=== PATIENT | female | born 1955 | race Caucasian/White ===

== ENCOUNTER → 2018-09-05 | Outpatient (CLI) | payer SELFPAY ==
[~2018-09-05] MED LIST: AMLO10 PO; BUSP15 PO; BUSP5 PO; CEPH500 PO; CLON.5 PO; GLIP5 PO; INSUASPI SC; INSUASPI SQ; INSULANPEN SC; INSULANPEN SQ; METO25 PO; Micro-K10 MEQ PO; Naprosyn500 MG PO; Norco 5-325 Ta1 EACH PO; PRAV20 PO; Prinivil10 MG PO; VENL150ER PO; VENL37.5ER PO
[2018-09-06 15:08] LABS: HPV 16 Negative (Negative); HPV 18 Negative (Negative); HPV OTHER HR TYPES Negative (Negative)
== END ==
LOC: LAB 12:10 → LAB SHORT 12:10
PROVIDERS: Registered Nurse Community Health
DX: Z12.4 Encounter for screening for malignant neoplasm of cervix (principal); N89.8 Other specified noninflammatory disorders of vagina
CPT/HCPCS: 87070; 87205; 87624; G0123

== ENCOUNTER → 2019-01-16 | Outpatient (CLI) | payer OTHER ==
[2019-01-16 17:59] LABS: BASOPHILS ABSOLUTE AUTO 0.07 K/mm3 (0.00-0.23); BASOPHILS PERCENT AUTO 1 % (0-2); EOSINOPHILS ABSOLUTE AUTO 0.05 K/mm3 (0.00-0.68); EOSINOPHILS PERCENT AUTO 1 % (0-6); Hematocrit 44.3 % (33.0-51.0); Hemoglobin 14.7 g/dL (11.5-16.0); IMMATURE GRAN ABSOLUTE AUTO 0.02 K/mm3 (0.00-0.10); IMMATURE GRAN PERCENT AUTO 0 % (0-1); LYMPHOCYTES ABSOLUTE AUTO 2.67 K/mm3 (0.84-5.20); LYMPHOCYTES PERCENT AUTO 31 % (21-46); MONOCYTES ABSOLUTE AUTO 0.47 K/mm3 (0.16-1.47); MONOCYTES PERCENT AUTO 5 % (4-13); Mean Corpuscular HGB 28.4 pg (26.0-34.0); Mean Corpuscular HGB Conc 33.2 g/dL (31.5-36.5); Mean Corpuscular Volume 86 fL (80-100); Mean Platelet Volume 11.1 fL (9.1-12.4); NEUTROPHILS ABSOLUTE AUTO 5.38 K/mm3 (1.96-9.15); NEUTROPHILS PERCENT AUTO 62 % (41-73); Platelet Count 293 K/mm3 (150-400); RDW Coefficient Variation 12.6 % (11.7-14.2); Red Blood Cell Count 5.18 M/mm3 (3.80-5.20); White Blood Cell Count 8.66 K/mm3 (4.00-11.30)
[2019-01-16 18:40] LABS: Alanine Aminotransfer (ALT/SGP 23 U/L (12-78); Albumin, Blood 3.7 g/dL (3.4-5.0); Albumin/Globulin Ratio 0.9 (0.8-1.8); Alk Phos 119 U/L (50-136); Anion Gap 6 mmol/L (6-16); Aspartate Aminotrans (AST/SGOT 19 U/L (12-37); Bilirubin, Total 0.4 mg/dL (0.1-1.0); Blood Urea Nitrogen 15 mg/dL (8-24); Bun/Creatinine Ratio 23.8 (12.0-20.0); CHOL/HDL RATIO 3.4; CO2, Blood 30 mmol/L (21-32); Calcium, Blood 9.7 mg/dL (8.5-10.1); Chloride, Blood 102 mmol/L (98-108); Cholesterol 200 mg/dL (50-200); Creatinine, Blood 0.63 mg/dL (0.40-1.00); Glomerular Filtration Rate >60 (60-); Glucose, Blood 336 mg/dL (70-99); HDL Cholesterol 58 mg/dL (>39); Low Density Lipoprotein Chol 114 mg/dL (0-110); Potassium, Blood 4.1 mmol/L (3.5-5.5); Sodium, Blood 138 mmol/L (136-145); Total Protein, Blood 7.7 g/dL (6.4-8.2); Triglycerides 138 mg/dL (30-160); Very Low Density Lipoprot Chol 27 mg/dL (6-32)
== END ==
LOC: LAB 17:38 → LAB SHORT 17:38
PROVIDERS: Nurse Practitioner Family
DX: E11.9 Type 2 diabetes mellitus without complications (principal)
CPT/HCPCS: 80053; 80061; 82043; 85025

== ENCOUNTER 2019-08-21 07:33 | Emergency (ER) | payer OTHER ==
[~2019-08-21] VITALS: Ht 149.9 cm; Wt 70.8 kg
[2019-08-21] MEDS ORDERED: BASAGLAR K100 UNIT/2 SQ (07:56)
[2019-08-21] MEDS ORDERED: GLIP5 PO (07:56)
[2019-08-21] MEDS ORDERED: Novolin R100 UNIT/M SC (07:57)
[2019-08-21] MEDS ORDERED: LISI20 (07:57)
[2019-08-21] MEDS ORDERED: BUSP10 PO (07:57)
[2019-08-21] MEDS ORDERED: PRAV20 PO (07:58)
[2019-08-21] MEDS ORDERED: Prednisone20 MG PO (09:38)
[2019-08-21] MEDS ORDERED: ALBU90OI INH (09:38)
[2019-08-21] MEDS ORDERED: FLUC150A PO (09:38)
[2019-08-21] MEDS ORDERED: AZIT250 PO (09:38)
== END 2019-08-21 10:11 | disposition home or self-care (01) ==
LOC: ER 07:33
DX: J18.9 Pneumonia, unspecified organism (principal); E11.9 Type 2 diabetes mellitus without complications; Z88.5 Allergy status to narcotic agent; Z79.899 Other long term (current) drug therapy; Z79.4 Long term (current) use of insulin; Z87.891 Personal history of nicotine dependence
CPT/HCPCS: 71046; 94640; 99283-25

== ENCOUNTER → 2019-12-30 | Outpatient (CLI) | payer OTHER ==
[~2019-12-30] MED LIST changes: +ALBU90OI INH; +AZIT250 PO; +BASAGLAR K100 UNIT/2 SQ; +BUSP10 PO; +FLUC150A PO; +LISI20; +Novolin R100 UNIT/M SC; +Prednisone20 MG PO
== END | disposition home or self-care (01) ==
LOC: LAB SHORT 13:39 → LAB EV 13:39
DX: N39.0 Urinary tract infection, site not specified (principal)
CPT/HCPCS: 87086

== ENCOUNTER → 2021-02-28 | Outpatient (CLI) | payer OTHER | END | disposition home or self-care (01) | LOC: LAB 13:30 → LAB SHORT 13:30 | DX: N30.01 Acute cystitis with hematuria (principal) | CPT/HCPCS: 87077; 87086; 87186 ==

== ENCOUNTER 2022-01-25 12:03 | Inpatient (IN) | payer MEDICARE, OTHER ==
[~2022-01-25] VITALS: Ht 149.9 cm; Wt 68.8 kg
[~2022-01-25 12:03] MED LIST changes: -LISI20; +LISI20 PO; -VENL150ER PO; +Venlafaxine HCl75 MG PO
[2022-01-25 12:39] LABS: BASOPHILS ABSOLUTE AUTO 0.13 K/mm3 (0.00-0.23); BASOPHILS PERCENT AUTO 1 % (0-2); EOSINOPHILS ABSOLUTE AUTO 0.01 K/mm3 (0.00-0.68); EOSINOPHILS PERCENT AUTO 0 % (0-6); Hematocrit 51.8 % (33.0-51.0); Hemoglobin 16.2 g/dL (11.5-16.0); IMMATURE GRAN ABSOLUTE AUTO 0.13 K/mm3 (0.00-0.10); IMMATURE GRAN PERCENT AUTO 1 % (0-1); LYMPHOCYTES ABSOLUTE AUTO 2.04 K/mm3 (0.84-5.20); LYMPHOCYTES PERCENT AUTO 17 % (21-46); MONOCYTES ABSOLUTE AUTO 0.36 K/mm3 (0.16-1.47); MONOCYTES PERCENT AUTO 3 % (4-13); Mean Corpuscular HGB 28.5 pg (26.0-34.0); Mean Corpuscular HGB Conc 31.3 g/dL (31.5-36.5); Mean Corpuscular Volume 91 fL (80-100); Mean Platelet Volume 10.9 fL (9.1-12.4); NEUTROPHILS ABSOLUTE AUTO 9.73 K/mm3 (1.96-9.15); NEUTROPHILS PERCENT AUTO 79 % (41-73); Platelet Count 277 K/mm3 (150-400); RDW Coefficient Variation 12.9 % (11.7-14.2); RDW Standard Deviation 43.2 fL (35.1-46.3); Red Blood Cell Count 5.68 M/mm3 (3.80-5.20)
[2022-01-25 13:02] LABS: Base Excess Venous -27.9 mmol/L; Bicarbonate Venous 7.7 mmol/L (24.0-30.0); PCO2 Venous 22.1 mmHg (38-42); PO2 Venous 138 mmHg (38-42); pH Blood Venous 6.93 (7.34-7.37)
[2022-01-25 13:27] LABS: Albumin/Globulin Ratio 0.8 (0.8-1.8); Bilirubin, Total 0.3 mg/dL (0.1-1.0); Bun/Creatinine Ratio 26.5 (12.0-20.0); Calcium, Blood 9.5 mg/dL (8.5-10.1); Creatinine, Blood 0.79 mg/dL (0.40-1.00)
[2022-01-25 13:38] LABS: Beta-hydroxybutyrate 115.4 mg/dL (0.2-2.8)
[2022-01-25 15:34] LABS: Thyroid Stimulating Hormone 1.59 uIU/mL (0.360-4.800); Thyroxine (T4) 4.5 ug/dL (4.8-13.9)
[2022-01-25 15:36] LABS: Potassium, Blood 5.1 mmol/L (3.5-5.5)
--- NOTE | 2022-01-25 17:39 | NUR ---
ARRIVAL TO ICU/SHIFT SUMMARY PT ARRIVES TO ICU AT 1455 FOR DKA. REPORT FROM CHAU PORTILLO. PT OUT OF MEDS FOR APPROX 6 MONTHS D/T INSURANCE ISSUES. PT ARRIVES A&OX 2, IMPULSIVE BUT FOLLOWS DIRECTIONS. LABORED, TACHYPENIC RESP, 30-40'S. LUNGS CLEAR. ST ON MONITOR, RATE 120'S. HTN NOTED, ALSO HAS BEEN OUT OF BP MEDS. INSULIN GTT INFUSING, q1 HR CBG. LR AT 150 ML/HR. PIV X 2. EXT COOL BUT CAP REFILL<3 SEC. WILL CONTINUE TO MONITOR UNTIL REPORT TO ONCOMING NURSE.
[2022-01-25 18:47] LABS: Potassium, Blood 4.3 mmol/L (3.5-5.5)
--- NOTE | 2022-01-25 19:50 | NUR ---
ASSESSMENT/ASSUMED CARE PT RESTING QUIETLY. DENIES PAIN. C/O BEING COLD. TEMP 98.6. WARM BLANKETS GIVEN. PT TURNING AND MOVING SELF IN BED. A&O BUT REPEATS SELF OVER AND OVER. AKBAR STATED YEAR 1899'S BUT THAN SAID,"NO THAT IS NOT RIGHT IT IS 2021" THAN KEEP REPEATING 2021 OVER AND OVER. LUNGS CLEAR ON ROOMAIR. RESP RATE DOWN INTO THE 20'S. NONPRODUCTIVE COUGH. DENIES SOB. HEART RATE 100-110'S. BP STABLE. DENIES CHEST PAIN OR PRESSURE. BT+ ABD SOFT AND NONTENDER. DENIES N/V. POWER GLIDE TO RIGHT UPPER ARM WITH LR AT 150 ML/HR AND INSULIN AT 13 UNITS/HR. BLOOD GLUCOSE 262, DECREASED INSULIN TO 10 UNITS/HR. POWER GLIDE SITE CLEAR AND DRSG INTACT. IV TO RIGHT HAND AND LEFT AC SALINED LOCKED, BOTH SITES CLEAR AND ABLE TO FLUSH WITHOUT DIFFICULTY.
--- NOTE | 2022-01-25 20:44 | NUR ---
IV FLUID BLOOD GLUCOSE 236. CHANGED IV FLUID TO D5 1/2 AT 125 ML/HR. INSULIN INCREASED TO 12 UNITS/HR. PT SITTING UP IN BED EATING JELLO.
[2022-01-25 22:21] LABS: Potassium, Blood 4.1 mmol/L (3.5-5.5)
[2022-01-26 02:20] LABS: Hematocrit 38.4 % (33.0-51.0); Hemoglobin 13.3 g/dL (11.5-16.0); Mean Corpuscular HGB 28.9 pg (26.0-34.0); Mean Corpuscular HGB Conc 34.6 g/dL (31.5-36.5); Mean Platelet Volume 10.5 fL (9.1-12.4); Platelet Count 199 K/mm3 (150-400); RDW Coefficient Variation 12.6 % (11.7-14.2); Red Blood Cell Count 4.61 M/mm3 (3.80-5.20)
[2022-01-26 02:32] LABS: Potassium, Blood 3.3 mmol/L (3.5-5.5)
[2022-01-26 02:35] LABS: Bun/Creatinine Ratio 33.5 (12.0-20.0); Calcium, Blood 8.8 mg/dL (8.5-10.1); Creatinine, Blood 0.66 mg/dL (0.40-1.00); Potassium, Blood 3.3 mmol/L (3.5-5.5)
[2022-01-26 02:39] LABS: Mean Corpuscular Volume 83 fL (80-100)
--- NOTE | 2022-01-26 06:01 | NUR ---
SHIFT SUMMARY PT RESTING QUIETLY AT THIS TIME. MOVING AND TURNING SELF IN BED. DENIES PAIN OR DISCOMFORT. A&O, SPEECH CLEAR, SLOW AND PT REPEATS SELF OVER AND OVER. FOLLOWING INSTRUCTIONS. PT INCONT OF STOOL TWICE DURING THE NIGHT. ATTENDS ON AT THIS TIME, CD&I. UP TO BSC WITH ONE ASSIST. VOIDING YELLOW URINE. PT ON INSULIN GTT, CURRENTLY AT 2 UNITS/HR WITH D5 1/2 NS AT 125 ML/HR VIA POWER GLIDE TO RIGHT UPPER ARM. ANION GAP IS DOWN TO 9 AND CO2 IS UP TO 20. POTASSIUM WAS 3.3, PT RECEIVED 20MEQ KCL THIS MORNING. PT TAKING CLEAR LIQUID WITHOUT DIFFICULTY. RESTARTED ON BP MEDS DURING THE NIGHT FOR HTN. REPORT TO ON COMING NURSE
[2022-01-26 07:09] LABS: Magnesium, Blood 1.5 mg/dL (1.6-2.4)
[2022-01-26 07:12] LABS: Phosphorus, Blood 0.4 mg/dL (2.5-4.9)
--- NOTE | 2022-01-26 08:51 | NUR ---
ASSUMED CARE REPORT FROM JINNY PORTILLO AT 0700. PT RESTING IN BED. WAKES c VERBAL STIMULI. A&OX 3. FOLLOWS COMMANDS. STATES SHE IS FEELING MUCH BETTER. HR, BP AND RESP WNL. LUNGS CLEAR, NSR ON MONITOR, RATE 60-70'S. INSULIN GTT INFUSING, CBG 100'S. GAP CLOSED, CO2 NORMAL. KPHOS STARTED. WILL REPEAT LABS p INFUSION. TRANSITIONING TO SQ INSULIN. PT TOLERATING CLEAR LIQUIDS WELL. WILL ADVANCE TOLERATED. WILL CONTINUE TO MONITOR.
--- NOTE | 2022-01-26 17:49 | NUR ---
SHIFT SUMMARY PT REMAINS ON INSULIN GTT D/T KPHOS IN D5. LONG ACTING AND HSS STARTED TODAY. TOLERATING MEALS WELL. WILL D/C INSULIN GTT WHEN KPHOS COMPLETE. PT A&OX 3. FORGETFUL AND NEEDS OCCASIONAL REDIRECTION. ASKS REPEATIVE QUESTIONS. FOLLOWS COMMANDS. INCONTINENT OF URINE THIS SHIFT. ATTENDS IN PLACE. NSR, RATE 80'S. BP STABLE. LUNGS CLEAR. WILL CONTINUE TO MONITOR UNTIL REPORT TO ONCOMING NURSE.
[2022-01-26 20:55] LABS: Cholesterol 195 mg/dL (50-200); HDL Cholesterol 39 mg/dL (>39); LDL/HDL RATIO 2.5; Low Density Lipoprotein Chol 96 mg/dL (0-110); Phosphorus, Blood 3.1 mg/dL (2.5-4.9); Triglycerides 299 mg/dL (30-160); Very Low Density Lipoprot Chol 59 mg/dL (6-32)
[2022-01-27 03:26] LABS: BASOPHILS ABSOLUTE AUTO 0.03 K/mm3 (0.00-0.23); BASOPHILS PERCENT AUTO 0 % (0-2); EOSINOPHILS ABSOLUTE AUTO 0.07 K/mm3 (0.00-0.68); EOSINOPHILS PERCENT AUTO 1 % (0-6); Hematocrit 37.3 % (33.0-51.0); Hemoglobin 12.8 g/dL (11.5-16.0); IMMATURE GRAN ABSOLUTE AUTO 0.02 K/mm3 (0.00-0.10); IMMATURE GRAN PERCENT AUTO 0 % (0-1); LYMPHOCYTES ABSOLUTE AUTO 3.23 K/mm3 (0.84-5.20); LYMPHOCYTES PERCENT AUTO 37 % (21-46); MONOCYTES ABSOLUTE AUTO 0.52 K/mm3 (0.16-1.47); MONOCYTES PERCENT AUTO 6 % (4-13); Mean Corpuscular HGB 28.4 pg (26.0-34.0); Mean Corpuscular HGB Conc 34.3 g/dL (31.5-36.5); Mean Corpuscular Volume 83 fL (80-100); Mean Platelet Volume 11.1 fL (9.1-12.4); NEUTROPHILS ABSOLUTE AUTO 4.93 K/mm3 (1.96-9.15); NEUTROPHILS PERCENT AUTO 56 % (41-73); Platelet Count 154 K/mm3 (150-400); RDW Coefficient Variation 13.1 % (11.7-14.2); RDW Standard Deviation 38.8 fL (35.1-46.3); Red Blood Cell Count 4.51 M/mm3 (3.80-5.20)
[2022-01-27 03:42] LABS: Bun/Creatinine Ratio 31.2 (12.0-20.0); Calcium, Blood 9.2 mg/dL (8.5-10.1); Creatinine, Blood 0.61 mg/dL (0.40-1.00); Magnesium, Blood 1.7 mg/dL (1.6-2.4); Phosphorus, Blood 2.8 mg/dL (2.5-4.9); Potassium, Blood 3.8 mmol/L (3.5-5.5)
--- NOTE | 2022-01-27 04:58 | NUR ---
SHIFT SUMMARY PT ALERT AND ORIENTED X3. FORGETFUL, WILL REPEAT THE SAME QUESTIONS FREQUENTLY. HR SR 60'S. BP STABLE. AFEBRILE. ON RA SATS OVER 97%. BLOOD SUGARS ELEVATED THIS EVENING. SWITCHED SHORT ACTING INSULIN COVERAGE TO HIGH SLIDING SCALE AND 5 ADDITIONAL UNITS GIVEN THIS AM. PT INCONTINENT, ATTENDS IN PLACE. IN BED SLEEPING WITH CALL ALARM AT SIDE. WILL CONTINUE TO MONITOR UNTIL REPORT GIVEN TO DAYSHIFT RN
[2022-01-27] MEDS ORDERED: ATOR40TA PO (08:15)
--- NOTE | 2022-01-27 09:23 | NUR ---
CARE OF PT ASSUMED AT 0700. PT AWAKE, OX3, BUT FORGETFUL AT TIMES. PT W/O COMPLAINTS. DR MCNALLY IN TO SEE PT AT 0730, PT CHANGED TO MED NO TELE. PT TOLERATING PO. SENIOR SOFTWARE QUALITY ENGINEER AND ELECTRIC LOCOMOTIVE CRANE OPERATOR ASSISTED PT OOB TO CHAIR THIS AM FOR BREAKFAST.
--- NOTE | 2022-01-27 11:27 | NUR ---
BS 378. DR CARRILLO NOTIFED. ADDITIONAL 5UNITS ORDERED. PT REMAINS UP IN CHAIR. C/O YEAST TO [place] AREA, DIFLUCAN ORDERED AND GIVEN.
--- NOTE | 2022-01-27 13:32 | NUR ---
PATIENT TRANSFERRED FROM ICU TODAY 01/27/22 AT 1300. DKA PATIENT IS A&OX3. VS ARE WNL AND IS ON RA. SHE IS TOLERATING SMALL AMOUNTS OF PO INTAKE AND IS ABLE TO AMBULATE WITH SBA. BED ALARM ON SINCE SHE CAN BE FORGETFUL AT TIMES. FATHER IS AT BEDSIDE. CALL LIGHT WITHIN REACH. PATIENT REPORTS "I'M GOING TO FINALLY TAKE A NAP NOW".
--- NOTE | 2022-01-27 16:16 | NUR ---
SHIFT SUMMARY: DKA PATIENT IS A&OX3 AND IS FORGETFUL AT TIMES WITH ASKING THE SAME QUESTIONS. VS ARE WNL AND IS ON RA. TOLERATING PO INTAKE AND IS VOIDING. PATIENT IS A SBA TO THE BATHROOM. CALLS APPROPRIATELY. BED ALARM ON A PRECAUTION. CALL LIGHT WITHIN REACH. PATIENT IS LAYING IN BED WATCHING TV AT THIS TIME. FATHERS NUMBER IS ON THE WHITE BOARD IF NEEDING TO GET AHOLD OF FAMILY. THE PLAN IS TO CONTINUE BLOOD SUGAR MANAGEMENT AND CONTINUE DIABETIC EDUCATION.
--- NOTE | 2022-01-27 16:22 | NUR ---
CALLED DR. WIGGINS ABOUT PATIENTS BLOOD SUGAR THAT WAS 358. DR. WIGGINS STATED TO JUST GIVE THE 10 UNITS OF HUMALOG AND NOTHING ELSE AT THIS TIME. WILL CONTINUE TO MONITOR BLOOD SUGARS. PATIENT IS LAYING IN BED WITH CALL LIGHT IN REACH.
--- NOTE | 2022-01-28 04:44 | NUR ---
PT IS A&OX4, INDEPENDENT IN BED AND IS ABLE TO MAKE NEEDS KNOWN. PT HAS BEEN LESS FORGEFUL THIS SHIFT, ANSWERS ORIENTATION QUESTIONS APPROPRIATELY. BLOOD SUGARS REMAIN >300. VSS. EDUCATED PT ON DIFFERENT TYPES OF INSULIN AND THEIR USES, PT VERBALIZES UNDERSTANDING. RESTS BETWEEN CARES AND IS INDEPENDENT TO BR. MIDLINE IV FLUSHES WELL BUT DOESN'T DRAW. PT SLEEPS 6+ HOURS THIS SHIFT. WILL CONTINUE TO MONITOR AND GIVE REPORT TO ONCOMING NURSE.
[2022-01-28 05:50] LABS: Bun/Creatinine Ratio 35.9 (12.0-20.0); Calcium, Blood 9.4 mg/dL (8.5-10.1); Creatinine, Blood 0.56 mg/dL (0.40-1.00); Potassium, Blood 4.2 mmol/L (3.5-5.5)
--- NOTE | 2022-01-28 18:29 | NUR ---
CHEM BG ELEATED ON AC CHECKS, NEW ORDERS RECEIVED REGARDING BLOOD SUGARS. PT UP IN ROOM TO VOID, DENIES PAIN
--- NOTE | 2022-01-29 04:21 | NUR ---
PT IS A&OX4, INDEPENDENT IN ROOM AND IS ABLE TO MAKE NEEDS KNOWN. NO ACUTE CHANGES THIS SHIFT. PLAN TO D/C THIS AM. BLOOD SUGARS REMAIN >300. TOLERATING DIET. VSS. DENIES PAIN. WILL CONTINUE TO MONITOR THIS PT AND GIVE REPORT TO ONCOMING NURSE
--- NOTE | 2022-01-29 12:40 | NUR ---
Pt. is sitting up in bed patsy welcomes my visit. Pt. is unsettled about not being discharged because of her high blood sugar numbers. Through a calming presence and theraputic listening was able to facilitate a family life review. Pt. displayed evidence of grief from a loss of a son who was a Marine in [place]. Pt. verbalized questions of a spiritual nature. Explored issues of ron and belief. Pt. displayed evidence of understanding and agreement. Continued to develop rapport at Pt. displayed evidence of being lonely. Prayed with pt. Pt. verbalized gratitude for the spiritual care visit. note: Upon my departure a nurse came to inform Pt. she could be discharged today.
[2022-01-29] MEDS ORDERED: BASAGLAR K100 UNIT/3 SC (13:00)
--- NOTE | 2022-01-29 15:14 | NUR ---
DISCHARGE SUMMARY PATIENT ALERT AND ORIENTED THROUGHOUT SHIFT. TOLERATING ADA DIET AND LIQUIDS. BLOOD SUGAR COVERED WITH SLIDING SCALE AND LONG ACTING INSULIN. INDEPENDENT IN ROOM AND VOIDING WELL. DISCHARGE ORDER OBTAINED. DISCHARGE EDUCATION GIVEN ON NEW MEDS AND FOLLOW UP APPTS. PATIENT LEFT UNIT WITH FATHER FOR HOME AT 1415.
== END 2022-01-29 14:08 | disposition home or self-care (01) | DRG 639 ==
LOC: ER 12:03 → SURS 14:05 → ICUE 14:05 → ICUW 14:05 → ICUE 14:49 → SURS 01-27 13:34
PROVIDERS: Emergency Medicine; Family Medicine; ADMIT Internal Medicine
DX: E11.10 Type 2 diabetes mellitus with ketoacidosis without coma (principal); E87.6 Hypokalemia; E83.39 Other disorders of phosphorus metabolism; B37.9 Candidiasis, unspecified; E78.5 Hyperlipidemia, unspecified; F32.A Depression, unspecified; E03.9 Hypothyroidism, unspecified; G47.00 Insomnia, unspecified; I10 Essential (primary) hypertension; F41.9 Anxiety disorder, unspecified; Z91.14 Patient's other noncompliance with medication regimen; Z79.4 Long term (current) use of insulin; Z90.49 Acquired absence of other specified parts of digestive tract; Z90.89 Acquired absence of other organs; Z98.890 Other specified postprocedural states; Z79.52 Long term (current) use of systemic steroids; Z88.5 Allergy status to narcotic agent; Z79.899 Other long term (current) drug therapy
CPT/HCPCS: 36415; 80048; 80051; 80053; 80061; 82010; 82043; 82803; 82947; 83735; 84100; 84436; 84443; 85025; 85027; 99285; A9270; C1751; J1650; J1815; J3480; J7042; J7060; J7120

== ENCOUNTER 2023-04-19 11:39 | Inpatient (IN) | payer MEDICARE, OTHER ==
[2023-04-19] VITALS (16 sets, daily range): BP systolic 101–167; BP diastolic 52–104
[~2023-04-19] VITALS: Ht 149.9 cm; Wt 70.1 kg
[~2023-04-19 11:39] MED LIST changes: +ATOR40TA PO; +BASAGLAR K100 UNIT/3 SC
[2023-04-19 13:00] LABS: Base Excess Venous -26.2 mmol/L; Bicarbonate Venous 8.2 mmol/L (24.0-30.0); PCO2 Venous 21.4 mmHg (38-42); pH Blood Venous 6.99 (7.34-7.37)
[2023-04-19 13:01] LABS: BASOPHILS ABSOLUTE AUTO 0.06 K/mm3 (0.00-0.23); BASOPHILS PERCENT AUTO 1 % (0-2); EOSINOPHILS PERCENT AUTO 0 % (0-6); Hematocrit 48.6 % (33.0-51.0); IMMATURE GRAN PERCENT AUTO 1 % (0-1); LYMPHOCYTES ABSOLUTE AUTO 0.89 K/mm3 (0.84-5.20); LYMPHOCYTES PERCENT AUTO 8 % (21-46); MONOCYTES PERCENT AUTO 3 % (4-13); Mean Corpuscular HGB 28.9 pg (26.0-34.0); Mean Corpuscular HGB Conc 32.9 g/dL (31.5-36.5); Mean Corpuscular Volume 88 fL (80-100); Mean Platelet Volume 11.2 fL (9.1-12.4); NEUTROPHILS ABSOLUTE AUTO 10.17 K/mm3 (1.96-9.15); NEUTROPHILS PERCENT AUTO 88 % (41-73); Platelet Count 324 K/mm3 (150-400); RDW Coefficient Variation 12.6 % (11.7-14.2); RDW Standard Deviation 40.9 fL (35.1-46.3); Red Blood Cell Count 5.54 M/mm3 (3.80-5.20); White Blood Cell Count 11.52 K/mm3 (4.00-11.30)
[2023-04-19 13:35] LABS: Calcium, Ionized (POC) 1.43 mmol/L (1.10-1.46); Chloride (POC) 105 mmol/L (98-108); Glucose (ISTAT POC) 590 mg/dL (70-99); Hemoglobin (POC) 16.3 g/dL (12.0-16.0); Potassium (POC) 5.3 mmol/L (3.5-5.5); Sodium (POC) 134 mmol/L (135-148); Total CO2 (POC) 8 mmol/L (21-32)
[2023-04-19 15:02] LABS: Potassium, Blood 4.7 mmol/L (3.5-5.5)
[2023-04-19 15:15] LABS: Alanine Aminotransfer (ALT/SGP 24 U/L (12-78); Albumin, Blood 3.6 g/dL (3.4-5.0); Albumin/Globulin Ratio 0.9 (0.8-1.8); Alk Phos 115 U/L (50-136); Anion Gap 32 mmol/L (6-16); Aspartate Aminotrans (AST/SGOT 16 U/L (12-37); Beta-hydroxybutyrate >138.0 mg/dL (0.2-2.8); Bilirubin, Total 0.5 mg/dL (0.1-1.0); Blood Urea Nitrogen 33 mg/dL (8-24); Bun/Creatinine Ratio 29.5 (12.0-20.0); CO2, Blood 5 mmol/L (21-32); Calcium, Blood 11.3 mg/dL (8.5-10.1); Chloride, Blood 98 mmol/L (98-108); Creatinine, Blood 1.12 mg/dL (0.40-1.00); Globulin, Blood 4.2 g/dL (2.2-4.0); Glomerular Filtration Rate 54 (60-); Glucose, Blood 631 mg/dL (70-99); Potassium, Blood 4.7 mmol/L (3.5-5.5); Sodium, Blood 135 mmol/L (136-145); Total Protein, Blood 7.8 g/dL (6.4-8.2)
[2023-04-19 16:19] LABS: Glucose, Blood 570 mg/dL (70-99)
--- NOTE | 2023-04-19 16:43 | NUR ---
ADMIT PT ARRIVED TO ICU 1 VIA STRETCHER. PT ALERT, TRANSFERRED TO ICU BED WITH ASSISTANCE. INSULIN GTT INFUSING. BLODO SUGAR CHECKED, BUT READ HIGH SO STAT GLUCOSE LAB SENT. RR 30S AND SHALLOW. WHILE LAYING IN BED PT'S HR JUMPED TO THE 180S AND SUSTAINED. SBP AT 103 AND PT DENIES ANY SYMPTOMS. VALSAVLA MANEUVER DONE BY PT WITH COACHING, BUT NO CHANGE IN HR. EKG SHOWS AFIB WITH RVR. AFTER5 MINTUES PT'S HR DROPPED BACK TO THE 120S. DR. LARSON NOTIFIED AND ORDERS RECEIVED FOR 1L LR BOLUS. PT ALSO STATES SHE DIDN'T TAKE HER AM MEDS, WHICH INCLUDES METOPROLOL. DR. LARSON ORDERED HER HOME DOSE OF METOPROLOL WITH FIRST DOSE TO BE GIVEN NOW. PT RESTING QUIETLY CURRENTLY. CONTINUING TO MONITOR.
[2023-04-19 17:13] LABS: Glucose, Blood 482 mg/dL (70-99)
[2023-04-19 18:48] LABS: Potassium, Blood 3.9 mmol/L (3.5-5.5)
--- NOTE | 2023-04-19 19:00 | NUR ---
ASSUMPTION OF CARE CARE OF NATACHA WAS ASSUMED AT 1900. PT WAS RESTING IN BED UPON ENTERING ROOM, FATHER AT BEDSIDE. PT DID NOT COMPLAIN OF ANY PAIN, AND ONLY REQUESTED SOME WATER TO DRINK. PT HAD INSULIN INFUSING AT 6.5 UNITS/HR AND KCL INFUSING AT 200 ML/HR. BP AND HEART RATE STABLE.
[2023-04-19 22:43] LABS: Potassium, Blood 4.5 mmol/L (3.5-5.5)
--- NOTE | 2023-04-19 23:44 | NUR ---
NS KCL 20 mEq was put on standby as per instructions on emar to stop all other fluids when D5 1/2 NS was started. Also refer to Potassium lab result at 2211.
[2023-04-20] VITALS (14 sets, daily range): BP systolic 107–173; BP diastolic 43–62
[2023-04-20 03:07] LABS: BASOPHILS ABSOLUTE AUTO 0.02 K/mm3 (0.00-0.23); BASOPHILS PERCENT AUTO 0 % (0-2); EOSINOPHILS ABSOLUTE AUTO 0.01 K/mm3 (0.00-0.68); EOSINOPHILS PERCENT AUTO 0 % (0-6); Hematocrit 37.9 % (33.0-51.0); Hemoglobin 12.9 g/dL (11.5-16.0); IMMATURE GRAN ABSOLUTE AUTO 0.06 K/mm3 (0.00-0.10); IMMATURE GRAN PERCENT AUTO 0 % (0-1); LYMPHOCYTES ABSOLUTE AUTO 3.36 K/mm3 (0.84-5.20); LYMPHOCYTES PERCENT AUTO 21 % (21-46); MONOCYTES ABSOLUTE AUTO 1.55 K/mm3 (0.16-1.47); MONOCYTES PERCENT AUTO 10 % (4-13); Mean Corpuscular HGB 29.1 pg (26.0-34.0); Mean Corpuscular Volume 86 fL (80-100); Mean Platelet Volume 10.7 fL (9.1-12.4); NEUTROPHILS PERCENT AUTO 68 % (41-73); Platelet Count 215 K/mm3 (150-400); RDW Coefficient Variation 12.5 % (11.7-14.2); RDW Standard Deviation 38.9 fL (35.1-46.3); Red Blood Cell Count 4.43 M/mm3 (3.80-5.20)
[2023-04-20 03:36] LABS: Bun/Creatinine Ratio 41.3 (12.0-20.0); Creatinine, Blood 0.7 mg/dL (0.40-1.00); Potassium, Blood 3.9 mmol/L (3.5-5.5)
[2023-04-20 03:37] LABS: Calcium, Blood 9.3 mg/dL (8.5-10.1)
--- NOTE | 2023-04-20 06:50 | NUR ---
SHIFT SUMMARY NATACHA CONTINUES TO BE A&O X4 ALTHOUGH DOES APPEAR TO BE FORGETFUL. WHEN ASKING PT QUESTIONS REGARDING HER LIVING SITUATION, SHE TOOK A SMALL AMOUNT OF TIME TO THINK ABOUT IT, AND WOULDN'T ALWAYS FULLY ANSWER THE QUESTION. CARDIAC MONITORING REFLECTED PT'S RHYTHM AFIB FOR THIS SHIFT. SBP 130S TO 140S THIS SHIFT. PT REMAINED ON ROOM AIR THROUGHOUT THE SHIFT, O2 SATS >95%. TITRATION OF INSULIN PERFORMED THROUGHOUT SHIFT PER EMAR. INSULIN CURRENTLY INFUSING @ 2 UNITS/HR. D5 1/2 NS IS ALSO INFUSING. PT IS INCONT OF BOWEL AND BLADDER. PT HAD A LARGE BM THIS SHIFT, AND MINIMAL URINE OUTPUT.
--- NOTE | 2023-04-20 07:36 | NUR ---
AM NOTE.... ASSUMED CARE OF PT AT 0700. PT IS A&Ox4 DURING THIS ASSESSMENT. SHE IS ON RA WITH O2 SAT>95% L/S CLEAR T/O. SHE IS IN SR IN THE 60'S BP IS STABLE WITH MAPS>65. NO EDEMA IS NOTED ON THIS ASSESSMENT. BT PRESENT AND NORMOACTIVE, PT DENIES ANY N/V AND IS REQUESTING BREAKFAST. THE INSULIN DRIP IS RUNNING AT 2U/HR, CBGs Q1HR LAST CBG WAS 193. D5 w/1/2 NS IS RUNNING PER ORDERS. GAP IS CLOSED AND CO2 IS 20. CALL LIGHT IN REACH WILL CONTINUE TO MONITOR.
[2023-04-20 09:06] LABS: Bun/Creatinine Ratio 41.5 (12.0-20.0); Calcium, Blood 9.5 mg/dL (8.5-10.1); Creatinine, Blood 0.58 mg/dL (0.40-1.00); Potassium, Blood 3.2 mmol/L (3.5-5.5)
[2023-04-20] MEDS ORDERED: HYDCHL25 PO (09:42)
[2023-04-20] MEDS ORDERED: TRULICITY0.75 MG/01 SC (09:44)
--- NOTE | 2023-04-20 15:39 | NUR ---
patient transfering to medical floor room 306, report from amita lombardo rn
[2023-04-21 04:27] VITALS: BP 171/64
[2023-04-21 05:30] LABS: Bun/Creatinine Ratio 32.9 (12.0-20.0); Creatinine, Blood 0.73 mg/dL (0.40-1.00); Potassium, Blood 3.9 mmol/L (3.5-5.5)
--- NOTE | 2023-04-21 06:02 | NUR ---
SHIFT SUMMARY 67 YR F ADMITTED ON 04/19/23 FOR DKA. PT TRANDFERED TO THIS UNIT YESTERDAY. FULL CODE. NO ACUTE CHANGES THIS SHIFT. PT CALLS APPROPRIATELY FOR ASSISTANCE AND AMBULATES TO BATHROOM. EVENING BS WAS 405 AND INSULIN GIVEN. PT HAD NO C/O PAIN, DISCOMFOR, NAUSEA, OR VOMITING THIS SHIFT. SHE IS PLAESANT AND COOPERATIVE WITH CARE.
[2023-04-21 07:23] VITALS: BP 155/61
[2023-04-21] MEDS ORDERED: INSULIN GL100 UNIT/2 SC (11:27)
--- NOTE | 2023-04-21 15:02 | NUR ---
REPEAT GLUCOSE 318. DR. LARSON INFORMED. OK TO DISCHARGE HOME
--- NOTE | 2023-04-21 15:41 | NUR ---
SHIFT/DISCHARGE SUMMARY Pt remains A&O x3 this shift. Denies pain. VSS. Ambulating to bathroom with SBA. Resp even nonlabored on RA. Elevated blood glucose testing and intervention reviewed with Dr. Ureña. All discharge instructions reviewed with pt and her dad with return verbal understanding. Expressed importance of diabetic diet. Pt to lobby via transport chair/FOOD WRITER with all belongings.
== END 2023-04-21 16:04 | disposition home or self-care (01) | DRG 639 ==
LOC: ER 11:39 → MEDS 14:07 → ICUE 14:07 → MEDS 04-20 15:48 → ENPENDDIS 04-21 10:06 → MEDS 04-21 16:04
PROVIDERS: Student in an Organized Health Care Education/Training Program; ADMIT Internal Medicine
DX: E11.10 Type 2 diabetes mellitus with ketoacidosis without coma (principal); N32.81 Overactive bladder; R32 Unspecified urinary incontinence; E78.5 Hyperlipidemia, unspecified; E03.9 Hypothyroidism, unspecified; F41.8 Other specified anxiety disorders; G47.00 Insomnia, unspecified; I10 Essential (primary) hypertension; T38.3X5A Adverse effect of insulin and oral hypoglycemic [antidiabetic] drugs, initial encounter; Z88.5 Allergy status to narcotic agent; Z90.49 Acquired absence of other specified parts of digestive tract; Z90.89 Acquired absence of other organs; Z79.899 Other long term (current) drug therapy; Z79.811 Long term (current) use of aromatase inhibitors; Z98.890 Other specified postprocedural states; Z79.4 Long term (current) use of insulin
CPT/HCPCS: 36415; 80047; 80048; 80051; 80053; 82010; 82803; 82947; 83690; 85014; 85025; 93005; 93010; 96361; 96374; 99285-25; A9270; J1650; J1815; J2405; J3480; J7042; J7120

== ENCOUNTER 2023-08-26 15:49 | Inpatient (IN) | payer MEDICARE, OTHER ==
[~2023-08-26] VITALS: Ht 149.9 cm; Wt 67.6 kg
[~2023-08-26 15:49] MED LIST changes: +HYDCHL25 PO; +INSULIN GL100 UNIT/2 SC; +TRULICITY0.75 MG/01 SC
[2023-08-26 16:22] LABS: BASOPHILS ABSOLUTE AUTO 0.05 K/mm3 (0.00-0.23); BASOPHILS PERCENT AUTO 1 % (0-2); EOSINOPHILS ABSOLUTE AUTO 0.02 K/mm3 (0.00-0.68); EOSINOPHILS PERCENT AUTO 0 % (0-6); Hematocrit 47.5 % (33.0-51.0); Hemoglobin 15.5 g/dL (11.5-16.0); IMMATURE GRAN ABSOLUTE AUTO 0.03 K/mm3 (0.00-0.10); IMMATURE GRAN PERCENT AUTO 0 % (0-1); LYMPHOCYTES ABSOLUTE AUTO 3.44 K/mm3 (0.84-5.20); LYMPHOCYTES PERCENT AUTO 35 % (21-46); MONOCYTES PERCENT AUTO 5 % (4-13); Mean Corpuscular HGB 28.4 pg (26.0-34.0); Mean Corpuscular HGB Conc 32.6 g/dL (31.5-36.5); Mean Corpuscular Volume 87 fL (80-100); Mean Platelet Volume 11.1 fL (9.1-12.4); NEUTROPHILS ABSOLUTE AUTO 5.83 K/mm3 (1.96-9.15); NEUTROPHILS PERCENT AUTO 59 % (41-73); Platelet Count 297 K/mm3 (150-400); RDW Coefficient Variation 12.6 % (11.7-14.2); RDW Standard Deviation 39.8 fL (35.1-46.3); Red Blood Cell Count 5.46 M/mm3 (3.80-5.20); White Blood Cell Count 9.87 K/mm3 (4.00-11.30)
[2023-08-26 16:49] LABS: Albumin, Blood 3.4 g/dL (3.4-5.0); Albumin/Globulin Ratio 0.8 (0.8-1.8); Bilirubin, Total 0.5 mg/dL (0.1-1.0); Bun/Creatinine Ratio 57.5 (12.0-20.0); Calcium, Blood 10.7 mg/dL (8.5-10.1); Creatinine, Blood 1.06 mg/dL (0.40-1.00); Magnesium, Blood 2.6 mg/dL (1.6-2.4); Potassium, Blood 4.1 mmol/L (3.5-5.5); Total Protein, Blood 7.4 g/dL (6.4-8.2)
[2023-08-26 17:04] LABS: Influenza A, PCR NEGATIVE (NEGATIVE); Influenza B, PCR NEGATIVE (NEGATIVE); Resp Syncytial Virus, PCR NEGATIVE (NEGATIVE); SARS-Cov-2 (COVID-19) PCR, MMC NEGATIVE (NEGATIVE)
[2023-08-26 17:47] LABS: Base Excess Venous -18.3 mmol/L; Bicarbonate Venous 12.5 mmol/L (24.0-30.0); PCO2 Venous 27.4 mmHg (38-42)
[2023-08-26 17:48] LABS: pH Blood Venous 7.18 (7.34-7.37)
[2023-08-26 19:17] LABS: Source, Urine Clean Catch
[2023-08-26 19:21] LABS: Bilirubin, Urine Neg (Neg); Blood, Urine 2+ (Neg); Glucose Qualitative, Urine 4+ (Neg); Ketones, Urine 4+ (Neg); Leukocyte Esterase, Urine 1+ (Neg); Nitrite, Urine Neg (Neg); Protein, Urine 2+ (Neg); Urobilinogen, Urine NORM (Normal)
[2023-08-26 19:28] LABS: Color, Urine Pale Yellow (P-Yellow)
[2023-08-26 19:29] LABS: Appearance, Urine Hazy (Clear); Bacteria Few /hpf; Squamous Epithelial Cells Few /hpf (Few); Yeast/Fungi Urine Few /hpf
[2023-08-26 19:36] LABS: Magnesium, Blood 2.3 mg/dL (1.6-2.4)
[2023-08-26 19:58] LABS: Bun/Creatinine Ratio 67.1 (12.0-20.0); Calcium, Blood 9.4 mg/dL (8.5-10.1); Creatinine, Blood 0.79 mg/dL (0.40-1.00)
[2023-08-26 20:00] VITALS: BP 172/73
--- NOTE | 2023-08-26 20:00 | NUR ---
ARRIVAL TO ICU PT ARRIVED TO ICU VIA ED BED AT 194 AND WAS ABLE TO AMBULATE OVER TO THE ICU BED WITH MINIMAL ASSISTANCE. SHE IS HERE FOR DKA. SHE IS A/O X4 AND ABLE TO MAKE HER NEEDS KNOWN; VERY PLEASENT AND COOPERATIVE WITH CARE. SPO2 >95% ON RA. AFEBRILE. HR 100-120. SBP 160-180'S. INSULIN STARTED AT 2UNITS/HR AND LR INFUSING AT 500ML/HR. NO C/O NAUSEA JUST FREQUENTLY ASKING FOR WATER AND ICE CHIPS; SMALL AMOUNT OF ICE CHIPS GIVEN AND SHE WAS ABLE TO TOLERATE WELL. SHE IS AMBULATING TO THE TOILET WITH MINIMAL ASSISTANCE, MOSTLY JUST LINE MANAGMENT NEEDED. SEE ADMISSION ASSESSMENT FOR FULL ASSESSMENT.
[2023-08-26 21:00] VITALS: BP 178/82
[2023-08-26 21:17] LABS: Base Excess Venous -19.2 mmol/L; Bicarbonate Venous 11.4 mmol/L (24.0-30.0); PCO2 Venous 27.6 mmHg (38-42); pH Blood Venous 7.15 (7.34-7.37)
[2023-08-26 22:00] VITALS: BP 184/76
[2023-08-26 22:18] VITALS: BP 115/99
[2023-08-26 23:04] VITALS: BP 141/60
[2023-08-26 23:30] LABS: Bun/Creatinine Ratio 58.7 (12.0-20.0); Calcium, Blood 8.8 mg/dL (8.5-10.1); Creatinine, Blood 0.77 mg/dL (0.40-1.00); Potassium, Blood 3.6 mmol/L (3.5-5.5)
[2023-08-27] VITALS (19 sets, daily range): BP systolic 106–143; BP diastolic 41–109
--- NOTE | 2023-08-27 | NUR ---
UPDATE CALL MADE TO HOSPITALIST REGARDING CRITCAL VALUES CO2 AND pH. NEW ORDERS PROVIDED FOR AN ADDITIONAL LR BOLUS. AFTER BOLUS WE WERE ABLE TO SWITCH OVER TO D5 1/2 NS AT 200ML/HR AT 2305. ALSO GAVE A DOSE OF LABETALOL FOR SBP 180-190'S. NOW SBP 130'S AND HR WENT FROM 100-110 TO 70'S. PT TOLERATING WELL.
[2023-08-27 06:04] LABS: Bun/Creatinine Ratio 48.7 (12.0-20.0); Calcium, Blood 8.7 mg/dL (8.5-10.1); Creatinine, Blood 0.66 mg/dL (0.40-1.00); Potassium, Blood 3.2 mmol/L (3.5-5.5)
--- NOTE | 2023-08-27 06:31 | NUR ---
END OF SHIFT SUMMARY NO ACUTE EVENTS OVERNIGHT. PT CONT TO BE A/O X4 AND ABLE TO MAKE HER NEEDS KNOWN. SPO2 >94% ON RA. HR 60-80'S. SBP 130'S. AMBULATING TO TOILET WITH MINIMAL ASSISTANCE. SHE STATES THAT SHE IS HUNGRY. CALL MADE TO DR VASQUEZ REGARDING THIS AM LAB; NEW ORDERS PROVIDED TO TRANSITION PT OFF OF INSULIN GTT, ANION GAP IS CLOSED AND CO2 IS WNL. ORDER ALSO TO REPLACE POTASSIUM THIS AM. WILL REPORT TO AM RN WHEN AVAILABLE.
--- NOTE | 2023-08-27 08:00 | NUR ---
INITIAL ASSESSMENT PATIENT SLEEPING SOUNDLY UPON ENTERING ROOM. PATIENT WAKES EASILY TO VERBAL STIMULI. PATIENT ALERT AND ORIENTED X 4, AFEBRILE. PATIENT DENIES PAIN. PATIENT WEAK; SBA TO TOILET. RESP WNL. PATIENT IN SR, HR IN THE 60S. SBP IN THE 130S. GI WNL. WNL. SKIN APPEARS WNL. INSULIN DRIP AT 6 UNITS/ HOUR. D5 1/2 NS AT 200 MLS/ HOUR. BED LOW, CALL LIGHT IN REACH. CARE CONTINUES.
[2023-08-27] MEDS ORDERED: METF500 PO (11:59)
[2023-08-27] MEDS ORDERED: JARDIANCE25 MG PO (12:00)
--- NOTE | 2023-08-27 12:00 | NUR ---
PATIENT AFEBRILE. HR IN THE 60S. SBP LOW 100S TO 140S. BLOOD SUGAR 301; COVERAGE ADMINISTERED. NO ACUTE CHANGES TO NOTE ON AT THIS TIME.
[2023-08-27] MEDS ORDERED: HYDCHL25 PO (12:02)
--- NOTE | 2023-08-27 12:39 | NUR ---
DR. CARUSO INFORMED THAT MED REC UPDATED. STATED SHE WOULD LOOK AT LIST AND PLACE ORDERS.
--- NOTE | 2023-08-27 16:29 | NUR ---
SHIFT SUMMARY PATIENT REMAINED ALERT AND ORIENTED X 4, AFEBRILE. PATIENT SBA TO TOILET. PATIENT HAD NO COMPLAINTS OF PAIN THIS SHIFT. PATIENT REMAINED SATTING 90% AND GREATER ON RA. PATIENT REMAINED IN SR, HR 60S TO 70S. SBP 1-TEENS TO 140S. GI AND WNL. SKIN REMAINED WNL. PATIENT REFUSED BED BATH THIS SHIFT. PATIENT STARTED ON LONG ACTING INSULIN THIS AM AND INSULIN DRIP DC'D. BLOOD SUGARS 208 AND 301 THIS SHIFT; [facility] COVERAGE ADMINISTERED. DR. CARUSO INFORMED THAT MED REC UPDATED THIS SHIFT. PATIENT HAD 40 MEQ KCL THIS SHIFT FOR POTASSIUM OF 3.2 THIS AM. PATIENT'S DAD CAME TO VISIT TWICE THIS SHIFT. PATIENT WILL BE TRANSFERRED TO SURGICAL FLOOR, ROOM 210 SHORTLY.
--- NOTE | 2023-08-27 16:35 | NUR ---
PATIENT SUCCESSFULLY TRANSFERRED TO SURGICAL FLOOR, ROOM 210. ALL BELONGINGS SENT WITH PATIENT.
--- NOTE | 2023-08-27 17:43 | NUR ---
PT ARRIVED TO ROOM 210/ICU TRANSFER, A&OX4, VSS/RA, AMB SBA TO BED, PARUL PO. WILL REPORT TO ONCOMING DALIA RN.
[2023-08-28 03:49] VITALS: BP 128/52
[2023-08-28 04:33] LABS: Calcium, Blood 8.9 mg/dL (8.5-10.1); Creatinine, Blood 0.53 mg/dL (0.40-1.00); Magnesium, Blood 1.9 mg/dL (1.6-2.4); Potassium, Blood 3.6 mmol/L (3.5-5.5)
--- NOTE | 2023-08-28 06:31 | NUR ---
SHIFT SUMMARY NOC. PT A/O X4. PT VOIDING AND TOLERATING PO INTAKE. PT DID NOT NEED ADDITIONAL INSULIN COVERAGE FOR BEDTIME BLOOD SUGAR. PT INDEPENDENT IN THE ROOM. PT RESTED WITH EYES CLOSED AND CALL LIGHT IN REACH.
[2023-08-28 07:07] VITALS: BP 118/49
[2023-08-28] MEDS ORDERED: CEPH500 PO (10:15)
--- NOTE | 2023-08-28 11:22 | NUR ---
DISCHARGE SUMMARY PT A&OX4, VSS/RA, PARUL PO, VOIDING, AMB INDEPENDENTLY, DENIES PAIN, IVs DCd x2. DC INS PROVIDED. PT REP UNDERSTANDING THOSE INSTRUCTIONS. LEFT FLOOR VIA WC WITH RN TO GO HOME WITH DAD WITH ALL PERSONAL POSSESSIONS.
[2023-08-30 07:11] LABS: HEMOGLOBIN A1C 15.5 % (4.8-5.6)
== END 2023-08-28 11:00 | disposition home or self-care (01) | DRG 638 ==
LOC: ER 15:49 → ICUE 18:10 → SURS 08-27 16:32
PROVIDERS: Hospitalist; Nurse Practitioner Acute Care; Student in an Organized Health Care Education/Training Program; ADMIT Internal Medicine
DX: E11.10 Type 2 diabetes mellitus with ketoacidosis without coma (principal); N39.0 Urinary tract infection, site not specified; I10 Essential (primary) hypertension; E78.5 Hyperlipidemia, unspecified; F41.8 Other specified anxiety disorders; G47.00 Insomnia, unspecified; E03.9 Hypothyroidism, unspecified; Z88.5 Allergy status to narcotic agent; Z91.148 Patient's other noncompliance with medication regimen for other reason; Z79.899 Other long term (current) drug therapy; Z79.4 Long term (current) use of insulin; Z90.49 Acquired absence of other specified parts of digestive tract; Z90.89 Acquired absence of other organs; Z87.891 Personal history of nicotine dependence; Z98.51 Tubal ligation status; Z11.52 Encounter for screening for COVID-19
CPT/HCPCS: 0241U; 36415; 80048; 80053; 81001; 82010; 82803; 82947; 83036; 83735; 85025; 87086; 93005; 93010; 96361; 96374; 99285-25; A9270; J0696; J1650; J1815; J2405; J3480; J7030; J7042; J7050; J7120

== ENCOUNTER → 2024-04-25 | Outpatient (CLI) | payer MEDICARE, OTHER ==
[~2024-04-25] MED LIST changes: +DOXY100 PO; +Diflucan150 MG PO; +JARDIANCE25 MG PO; +METF500 PO
[2024-04-25 14:24] LABS: BASOPHILS ABSOLUTE AUTO 0.07 K/mm3 (0.00-0.23); BASOPHILS PERCENT AUTO 1 % (0-2); EOSINOPHILS ABSOLUTE AUTO 0.09 K/mm3 (0.00-0.68); EOSINOPHILS PERCENT AUTO 1 % (0-6); Hematocrit 40.5 % (33.0-51.0); Hemoglobin 13.5 g/dL (11.5-16.0); IMMATURE GRAN ABSOLUTE AUTO 0.01 K/mm3 (0.00-0.10); IMMATURE GRAN PERCENT AUTO 0 % (0-1); LYMPHOCYTES ABSOLUTE AUTO 2.15 K/mm3 (0.84-5.20); LYMPHOCYTES PERCENT AUTO 33 % (21-46); MONOCYTES ABSOLUTE AUTO 0.37 K/mm3 (0.16-1.47); MONOCYTES PERCENT AUTO 6 % (4-13); Mean Corpuscular HGB 28.5 pg (26.0-34.0); Mean Corpuscular HGB Conc 33.3 g/dL (31.5-36.5); Mean Corpuscular Volume 85 fL (80-100); Mean Platelet Volume 10.5 fL (9.1-12.4); NEUTROPHILS ABSOLUTE AUTO 3.87 K/mm3 (1.96-9.15); NEUTROPHILS PERCENT AUTO 59 % (41-73); Platelet Count 261 K/mm3 (150-400); RDW Coefficient Variation 12.7 % (11.7-14.2); RDW Standard Deviation 39.2 fL (35.1-46.3); Red Blood Cell Count 4.74 M/mm3 (3.80-5.20); White Blood Cell Count 6.56 K/mm3 (4.00-11.30)
[2024-04-25 14:48] LABS: Alanine Aminotransfer (ALT/SGP 24 U/L (12-78); Albumin, Blood 3.1 g/dL (3.4-5.0); Albumin/Globulin Ratio 0.9 (0.8-1.8); Alk Phos 104 U/L (50-136); Anion Gap 7 mmol/L (3-11); Aspartate Aminotrans (AST/SGOT 16 U/L (12-37); Bilirubin, Total 0.5 mg/dL (0.1-1.0); Blood Urea Nitrogen 37 mg/dL (8-24); Bun/Creatinine Ratio 41.7 (12.0-20.0); CHOL/HDL RATIO 2.8; CO2, Blood 30 mmol/L (21-32); Calcium, Blood 9.8 mg/dL (8.5-10.1); Chloride, Blood 105 mmol/L (98-108); Cholesterol 155 mg/dL (50-200); Creatinine, Blood 0.89 mg/dL (0.40-1.00); Globulin, Blood 3.4 g/dL (2.2-4.0); Glomerular Filtration Rate 71 (60-); Glucose, Blood 272 mg/dL (70-99); HDL Cholesterol 56 mg/dL (>39); LDL/HDL RATIO 1.4; Low Density Lipoprotein Chol 81 mg/dL (0-110); Potassium, Blood 4.1 mmol/L (3.5-5.5); Sodium, Blood 138 mmol/L (136-145); Total Protein, Blood 6.5 g/dL (6.4-8.2); Triglycerides 91 mg/dL (30-160); Very Low Density Lipoprot Chol 18 mg/dL (6-32)
[2024-04-25 16:31] LABS: Bacterial Vaginosis PCR Negative (NEGATIVE)
[2024-04-25 17:44] LABS: Candida Group, PCR DETECTED (NOT DETECT); Candida glabrata-krusei, PCR DETECTED (NOT DETECT)
[2024-04-27 12:18] LABS: HIV 1,2 COMBO ANTIGEN/ANTIBODY Negative (Negative)
[2024-04-27 15:40] LABS: HEPATITIS C AB CIA INTERP Negative (Negative); HEPATITIS C ANTIBODY CIA INDEX 0.09 IV
== END | disposition home or self-care (01) ==
LOC: LAB SHORT 10:42 → LAB 10:42
PROVIDERS: Student in an Organized Health Care Education/Training Program
DX: Z11.4 Encounter for screening for human immunodeficiency virus [HIV] (principal); Z11.59 Encounter for screening for other viral diseases; E11.65 Type 2 diabetes mellitus with hyperglycemia; B37.31 Acute candidiasis of vulva and vagina; Z79.899 Other long term (current) drug therapy; Z79.4 Long term (current) use of insulin
CPT/HCPCS: 36415; 80053; 80061; 82043; 83036; 85025; 87481; 87661; 87801

== ENCOUNTER 2024-07-01 03:41 | Emergency (ER) | payer MEDICARE, OTHER ==
[~2024-07-01] VITALS: Ht 149.9 cm; Wt 68.0 kg
[~2024-07-01 03:41] MED LIST changes: -Venlafaxine HCl75 MG PO
[2024-07-01 04:58] LABS: BASOPHILS ABSOLUTE AUTO 0.07 K/mm3 (0.00-0.23); BASOPHILS PERCENT AUTO 1 % (0-2); EOSINOPHILS ABSOLUTE AUTO 0.04 K/mm3 (0.00-0.68); EOSINOPHILS PERCENT AUTO 1 % (0-6); Hematocrit 41.5 % (33.0-51.0); Hemoglobin 14.2 g/dL (11.5-16.0); IMMATURE GRAN ABSOLUTE AUTO 0.02 K/mm3 (0.00-0.10); IMMATURE GRAN PERCENT AUTO 0 % (0-1); LYMPHOCYTES ABSOLUTE AUTO 2.18 K/mm3 (0.84-5.20); LYMPHOCYTES PERCENT AUTO 31 % (21-46); MONOCYTES ABSOLUTE AUTO 0.44 K/mm3 (0.16-1.47); MONOCYTES PERCENT AUTO 6 % (4-13); Mean Corpuscular HGB 29.4 pg (26.0-34.0); Mean Corpuscular HGB Conc 34.2 g/dL (31.5-36.5); Mean Corpuscular Volume 86 fL (80-100); Mean Platelet Volume 11.5 fL (9.1-12.4); NEUTROPHILS ABSOLUTE AUTO 4.39 K/mm3 (1.96-9.15); NEUTROPHILS PERCENT AUTO 61 % (41-73); Platelet Count 218 K/mm3 (150-400); RDW Coefficient Variation 11.7 % (11.7-14.2); RDW Standard Deviation 36.9 fL (35.1-46.3); Red Blood Cell Count 4.83 M/mm3 (3.80-5.20); White Blood Cell Count 7.14 K/mm3 (4.00-11.30)
[2024-07-01] MEDS ORDERED: NS 1,000 ML IV SCH ×2 (05:30→07:05)
[2024-07-01 05:35] LABS: Base Excess Venous -3.3 mmol/L; Bicarbonate Venous 21.7 mmol/L (24.0-30.0); PCO2 Venous 37.9 mmHg (38-42); pH Blood Venous 7.37 (7.34-7.37)
[2024-07-01 05:35] LABS: Beta-hydroxybutyrate 39.9 mg/dL (0.2-2.8)
[2024-07-01 05:49] LABS: Albumin, Blood 2.3 g/dL (3.4-5.0); Albumin/Globulin Ratio 0.9 (0.8-1.8); Bilirubin, Total 0.2 mg/dL (0.1-1.0); Bun/Creatinine Ratio 42.5 (12.0-20.0); Calcium, Blood 8.3 mg/dL (8.5-10.1); Creatinine, Blood 0.66 mg/dL (0.40-1.00); Globulin, Blood 2.6 g/dL (2.2-4.0); Potassium, Blood 3.7 mmol/L (3.5-5.5); Total Protein, Blood 4.9 g/dL (6.4-8.2)
[2024-07-01 06:14] LABS: Glucose, Blood 764 mg/dL (70-99)
[2024-07-01] MEDS ORDERED: Insulin NPH 100 Unit / ML 10ML Vial SC ONE (06:15)
[2024-07-01] MEDS ORDERED: Labetalol HCL 5 MG/ML 4ML Injection (Single Dose) IV ONE (06:25)
[2024-07-01] MEDS ORDERED: Insulin Human Lispro 100 Units/ML 3ML Syringe SC SCH (06:30)
[2024-07-01 07:24] LABS: Glucose, Blood 728 mg/dL (70-99)
[2024-07-01 08:48] LABS: Source, Urine Clean Catch
[2024-07-01 08:52] LABS: Appearance, Urine Clear (Clear); Bilirubin, Urine Neg (Neg); Blood, Urine 1+ (Neg); Glucose Qualitative, Urine 4+ (Neg); Ketones, Urine 4+ (Neg); Leukocyte Esterase, Urine 1+ (Neg); Nitrite, Urine Neg (Neg); Protein, Urine 2+ (Neg); Specific Gravity, Urine 1.015 (1.003-1.022); Urobilinogen, Urine NORM (Normal)
[2024-07-01 08:58] LABS: Color, Urine Pale Yellow (P-Yellow)
[2024-07-01 08:59] LABS: Bacteria Few /hpf; Squamous Epithelial Cells Few /hpf (Few)
[2024-07-01 10:45] VITALS: BP 144/61
[2024-07-04] MEDS ORDERED: ZESTORETIC 20-121 EA PO (10:12)
[2024-07-04] MEDS ORDERED: OZEMPIC0.25 MG/02 SQ (10:43)
[2024-07-06] MEDS ORDERED: Diflucan100 MG PO (19:06)
[2024-07-06] MEDS ORDERED: VENL75ER PO (19:33)
== END 2024-07-01 10:53 | disposition home or self-care (01) ==
LOC: ER 03:41
PROVIDERS: Student in an Organized Health Care Education/Training Program
DX: E11.65 Type 2 diabetes mellitus with hyperglycemia (principal); I10 Essential (primary) hypertension; Z87.891 Personal history of nicotine dependence; E78.5 Hyperlipidemia, unspecified; G47.00 Insomnia, unspecified; E03.9 Hypothyroidism, unspecified; Z79.84 Long term (current) use of oral hypoglycemic drugs; Z79.899 Other long term (current) drug therapy; Z79.4 Long term (current) use of insulin; Z88.5 Allergy status to narcotic agent
CPT/HCPCS: 80053; 81001; 82010; 82803; 82947; 85025; 87086; 93005; 93010; 96361; 96374; 99283-25; A9270; J1815; J7030

== ENCOUNTER → 2024-12-10 | Outpatient (CLI) | payer MEDICARE, OTHER ==
[~2024-12-10] MED LIST changes: +BENZ100A PO; +Diflucan100 MG PO; +FAMO20 PO; +LANTUS SOL100 UNIT/1 SC; +METOPROLOL SUCC25 MG PO; +OZEMPIC0.25 MG/02 SQ; +VENL75ER PO; +ZESTORETIC 20-121 EA PO
[2024-12-10 12:24] LABS: Free Thyroxine 1.01 ng/dL (0.70-1.60)
[2024-12-10 12:27] LABS: Thyroid Stimulating Hormone 4.02 uIU/mL (0.360-4.800)
== END ==
LOC: LAB SHORT 09:50 → LAB 09:50
PROVIDERS: Student in an Organized Health Care Education/Training Program
DX: E11.65 Type 2 diabetes mellitus with hyperglycemia (principal); R68.89 Other general symptoms and signs; Z79.4 Long term (current) use of insulin
CPT/HCPCS: 83036; 84439; 84443